=== PATIENT | female | born 1935 | race African-American/Black ===

== ENCOUNTER 2019-08-29 02:16 | Inpatient (IN) | payer OTHER ==
[~2019-08-29] VITALS: Ht 154.9 cm; Wt 77.1 kg
[2019-08-29] MEDS ORDERED: NALOXONE HCL 1 MG/ML 2ML VIAL ONE (02:24)
[2019-08-29] MEDS ORDERED: NALOXONE HCL 1 MG/ML 2ML VIAL IV ONE (02:30)
[2019-08-29] MEDS ORDERED: CALCIUM GLUCONATE 100MG/ML 10ML VIAL IV ONE (02:45)
[2019-08-29] MEDS ORDERED: SODIUM CHLORIDE 0.9% 1,000 ML IV ONE (02:45)
[2019-08-29 03:02] LABS: HEMATOCRIT. 26.8 % (36.0-48.0); HEMOGLOBIN. 8.9 g/dL (12.0-16.0); MEAN CORPUSCULAR VOLUME 93.7 fL (81.0-99.0); MEAN PLATELET VOLUME 7.9 fl (7.4-10.4); PLATELET 168 x1000/uL (130-400); RED BLOOD CELL COUNT 2.86 mill/uL (4.2-5.4); RED CELL DISTRIBUTION WIDTH 15.7 % (11.6-14.6)
[2019-08-29 03:08] LABS: CHLORIDE 115 mEq/L (98-107)
[2019-08-29 03:10] LABS: PARTIAL THROMBOPLASTIN TIME 23.6 sec (23.4-31.0)
[2019-08-29 03:11] LABS: ETHANOL BLOOD < 10 mg/dL
[2019-08-29 03:14] LABS: LDL CHOLESTEROL 21 mg/dL (5-100)
[2019-08-29] MEDS ORDERED: ASPIRIN 325MG EC TABLET PO ONE (03:15)
[2019-08-29] MEDS ORDERED: DEXTROSE 50% WATER 50ML SYRINGE IV ONE ×2 (03:30→03:32)
[2019-08-29] MEDS ORDERED: DEXT 10% WATER 1,000 ML IV ONE (03:30)
[2019-08-29 03:47] LABS: CLARITY URINE CLOUDY (CLEAR); COLOR URINE DARK YELLOW (YELLOW); KETONES URINE NEGATIVE (NEGATIVE); LEUKOCYTE ESTERASE URINE 3+ (NEGATIVE); NITRITE URINE NEGATIVE (NEGATIVE); OCCULT BLOOD URINE 1+ (NEGATIVE); PROTEIN URINE TRACE (NEGATIVE); SPECIFIC GRAVITY URINE 1.013 (1.005-1.030)
[2019-08-29 04:08] LABS: ATYPICAL LYMPHOCYTES 2
[2019-08-29 04:09] LABS: PLATELET ESTIMATE NORMAL
[2019-08-29 04:17] LABS: *AMPHETAMINES SCREEN URINE NEGATIVE (NEGATIVE); *BARBITURATES SCREEN URINE NEGATIVE (NEGATIVE); *BENZODIAZEPINES SCREEN URINE NEGATIVE (NEGATIVE); *COCAINE SCREEN URINE NEGATIVE (NEGATIVE)
[2019-08-29 04:18] LABS: CANNABINOID URINE SCREEN NEGATIVE (NEGATIVE); METHADONE URINE SCREEN NEGATIVE (NEGATIVE); OPIATES URINE SCREEN NEGATIVE (NEGATIVE); PHENCYCLIDINE URINE SCREEN NEGATIVE (NEGATIVE)
[2019-08-29] MEDS ORDERED: AZITHROMYCIN 500 MG in DEXT 5% WATER 250 ML IV NR (05:15)
[2019-08-29] MEDS ORDERED: CEFTRIAXONE 1 G PREMIX 50 ML IV NR (05:15)
[2019-08-29] MEDS ORDERED: DEXTROSE 50% WATER 50ML SYRINGE IV PRN (06:30)
[2019-08-29] MEDS ORDERED: ONDANSETRON HCL 4MG/2ML INJ IV PRN (06:30)
[2019-08-29] MEDS ORDERED: CLONIDINE 0.1MG TABLET PO PRN (06:30)
[2019-08-29] MEDS ORDERED: ACETAMINOPHEN 325MG TABLET PO PRN (06:30)
[2019-08-29] MEDS ORDERED: GUAIFENESIN 200MG/10ML SUGAR FREE UDC PO PRN (06:30)
[2019-08-29] MEDS ORDERED: MAGNESIUM/ALUMINUM HYDROXIDE/SIMETHICONE 30ML UDC PO PRN (06:30)
[2019-08-29] MEDS ORDERED: ZOLPIDEM TARTRATE 5MG TABLET PO PRN ×2 (06:30→21:00)
[2019-08-29] MEDS ORDERED: TRAMADOL 50MG TABLET PO PRN (06:30)
[2019-08-29] MEDS ORDERED: DOCUSATE SODIUM 100MG CAPSULE PO PRN (06:30)
[2019-08-29] MEDS ORDERED: IPRATROPIUM/ALBUTEROL 0.5-3(2.5)MG/3ML NEB NEB PRN (06:30)
[2019-08-29] MEDS ORDERED: NITROGLYCERIN 0.4MG TABLET SL SL PRN (06:30)
[2019-08-29] MEDS ORDERED: LEVOFLOXACIN 500MG PREMIX 100 ML IV SCH (06:45)
[2019-08-29 07:17] LABS: T4 FREE 1.21 ng/dL (0.76-1.46)
[2019-08-29 07:49] LABS: FOLIC ACID (FOLATE) SERUM > 20.00 ng/mL (>5.38); VITAMIN B12 SERUM > 2000.0 pg/mL (211-911)
[2019-08-29 08:17] VITALS: BP 149/56
[2019-08-29] MEDS: INSULIN LISPRO 100 UNITS/ML SUBCUT SCH ×4 (08:20→21:48)
[2019-08-29 09:20] VITALS: BP 149/56
[2019-08-29 10:00] VITALS: BP 149/56
[2019-08-29] MEDS ORDERED: NA PHOS,M-B/NA PHOS,DI-BA ENEMA 118ML PR PRN (10:00)
[2019-08-29] MEDS ORDERED: LEVOFLOXACIN 500MG PREMIX 100 ML IV NR (11:00)
[2019-08-29] MEDS: ZINC SULFATE 220 MG ( 50 ) CAPSULE PO SCH (11:31)
[2019-08-29 12:00] VITALS: BP 135/35
[2019-08-29] MEDS: BLOOD SUGAR DIAGNOSTIC STRIP TEST SCH ×3 (12:09→21:48)
[2019-08-29] MEDS: ASCORBIC ACID 500 MG TABLET PO SCH ×2 (12:14→21:47)
[2019-08-29] MEDS: FAMOTIDINE 20MG TABLET PO SCH (12:14)
[2019-08-29] MEDS: ENOXAPARIN 30MG/0.3ML SYR SUBCUT SCH (12:15)
[2019-08-29 16:05] VITALS: BP 120/73
[2019-08-29 20:00] VITALS: BP 134/67
[2019-08-30] VITALS: BP 145/55
[2019-08-30 04:00] VITALS: BP 104/51
[2019-08-30] MEDS ORDERED: CEFTRIAXONE 1 G PREMIX 50 ML IV SCH (06:00)
[2019-08-30] MEDS: BLOOD SUGAR DIAGNOSTIC STRIP TEST SCH ×4 (06:40→21:41)
[2019-08-30 08:00] VITALS: BP 119/56
[2019-08-30] MEDS: ZINC SULFATE 220 MG ( 50 ) CAPSULE PO SCH (08:55)
[2019-08-30] MEDS: ASPIRIN 325MG EC TABLET PO SCH (08:55)
[2019-08-30] MEDS: ASCORBIC ACID 500 MG TABLET PO SCH ×2 (08:55→21:41)
[2019-08-30] MEDS: FAMOTIDINE 20MG TABLET PO SCH (08:55)
[2019-08-30] MEDS: INSULIN LISPRO 100 UNITS/ML SUBCUT SCH ×4 (08:57→21:42)
[2019-08-30] MEDS: ENOXAPARIN 30MG/0.3ML SYR SUBCUT SCH (08:58)
[2019-08-30 12:00] VITALS: BP 120/64
[2019-08-30 16:00] VITALS: BP 128/68
[2019-08-30 20:00] VITALS: BP 138/59
[2019-08-31] VITALS: BP 135/82
[2019-08-31 04:00] VITALS: BP 135/53
[2019-08-31] MEDS: INSULIN LISPRO 100 UNITS/ML SUBCUT SCH ×2 (05:48→13:02)
[2019-08-31] MEDS: BLOOD SUGAR DIAGNOSTIC STRIP TEST SCH ×2 (05:48→12:06)
[2019-08-31] MEDS ORDERED: CEFTRIAXONE 1 G PREMIX 50 ML IV SCH (06:00)
[2019-08-31 08:00] VITALS: BP 150/55
[2019-08-31] MEDS: ENOXAPARIN 30MG/0.3ML SYR SUBCUT SCH (09:44)
[2019-08-31] MEDS: ASCORBIC ACID 500 MG TABLET PO SCH (09:44)
[2019-08-31] MEDS: ASPIRIN 325MG EC TABLET PO SCH (09:44)
[2019-08-31] MEDS: FAMOTIDINE 20MG TABLET PO SCH (09:44)
[2019-08-31] MEDS: ZINC SULFATE 220 MG ( 50 ) CAPSULE PO SCH (09:45)
[2019-08-31] MEDS ORDERED: LEVOFLOXACIN 250MG PREMIX 50 ML IV SCH (11:00)
[2019-08-31 12:00] VITALS: BP 110/80
[2019-08-31 14:02] VITALS: BP 110/80
== END 2019-08-31 16:19 | disposition home or self-care (01) | DRG 91 ==
LOC: ER 02:16 → 7EST 05:22 → EDBEDREQTM 05:24 → EDBEDREQSVC 05:24 → EDBEDREQ 05:24 → SUPCPDRO 06:24 → ENRESERV 07:41
PROVIDERS: ADMIT Internal Medicine; ATTEND Internal Medicine
DX: G92 Toxic encephalopathy (principal); J96.00 Acute respiratory failure, unspecified whether with hypoxia or hypercapnia; N17.0 Acute kidney failure with tubular necrosis; N39.0 Urinary tract infection, site not specified; E44.0 Moderate protein-calorie malnutrition; G46.0 Middle cerebral artery syndrome; I12.9 Hypertensive chronic kidney disease with stage 1 through stage 4 chronic kidney disease, or unspecified chronic kidney disease; D63.8 Anemia in other chronic diseases classified elsewhere; N81.10 Cystocele, unspecified; Z20.828 Contact with and (suspected) exposure to other viral communicable diseases; E11.22 Type 2 diabetes mellitus with diabetic chronic kidney disease; E11.649 Type 2 diabetes mellitus with hypoglycemia without coma; E78.5 Hyperlipidemia, unspecified; N18.9 Chronic kidney disease, unspecified; Z68.32 Body mass index [BMI] 32.0-32.9, adult; Z03.818 Encounter for observation for suspected exposure to other biological agents ruled out
CPT/HCPCS: 36415; 71045; 80053; 80061; 80305; 80320; 81003; 82607; 82746; 82962; 83036; 83540; 83550; 83605; 83721; 84145; 84439; 84443; 84484; 85025; 86850; 86900; 87635; 87804; 93005; 99291; J0456; J0610; J0696; J1650; J1815; J1956; J2310; J7030; J7060; G0480

== ENCOUNTER 2019-09-02 22:19 | Emergency (ER) | payer OTHER ==
[~2019-09-02] VITALS: Ht 165.1 cm; Wt 85.0 kg
[2019-09-02 23:38] LABS: HEMATOCRIT. 28.4 % (36.0-48.0); HEMOGLOBIN. 9.2 g/dL (12.0-16.0); MEAN CORPUSCULAR HEMOGLOBIN 30.7 pg (28.0-32.0); MEAN CORPUSCULAR VOLUME 94.6 fL (81.0-99.0); MEAN PLATELET VOLUME 8.1 fl (7.4-10.4); PLATELET 169 x1000/uL (130-400); RED CELL DISTRIBUTION WIDTH 16.6 % (11.6-14.6)
[2019-09-02 23:57] LABS: CHLORIDE 116 mEq/L (98-107)
[2019-09-03] MEDS ORDERED: DEXTROSE 50% WATER 50ML SYRINGE IV ONE (02:02)
[2019-09-03 03:00] VITALS: BP 127/57
[2019-09-03 05:20] LABS: ATYPICAL LYMPHOCYTES 2
[2019-09-03 05:21] LABS: PLATELET ESTIMATE NORMAL
== END 2019-09-03 03:41 | disposition short-term general hospital (02) ==
LOC: ER 22:19
DX: E11.649 Type 2 diabetes mellitus with hypoglycemia without coma (principal); I10 Essential (primary) hypertension
CPT/HCPCS: 36415; 80053; 82962; 85025; 93005; 99285